=== PATIENT | female | born 1980 | race Native Hawaiian/Other Pacific Islander ===

== ENCOUNTER 2017-02-27 21:33 | Observation (INO) | payer OTHER ==
[~2017-02-27] VITALS: Ht 167.6 cm; Wt 87.5 kg
[~2017-02-27 21:33] MED LIST: ALBUTEROL0.083 % IN; ASMANEX 120220 MCG IN; CALCIUM +D PO; CETIRIZINE10 MG PO; DIAZEPAM10 MG PO; DIPH25CA90 PO; EPIPEN 2-PAK0.3 MG IJ; EQ OMEPRAZOLE20 MG PO; FLUNISOLIDE XX; FLUOXETINE20 MG PO; GABA300C2 PO; HYDR5TAB9 PO; LIDO/PRILOCN1 CRE EX; OXYCODONE HCL15 MG PO; PROMETHAZINE25 MG PO; ROBAXIN-750750 MG PO
[2017-02-27 21:36] VITALS: BP 133/75; TEMP 98.5
[2017-02-27 22:34] LABS: PLATELET COUNT 205 K/uL (152-353)
[2017-02-28 04:00] VITALS: BP 105/61; TEMP 97.5
[2017-02-28 06:53] VITALS: BP 106/71; TEMP 97.5; Ht 167.6 cm; Wt 87.5 kg
[2017-02-28 08:00] VITALS: BP 105/59; TEMP 97.6
[2017-02-28 12:00] VITALS: BP 104/59; TEMP 97.8
== END 2017-02-28 15:06 | disposition home or self-care (01) ==
LOC: ED 21:33 → MED/SURG 23:28
DX: T78.3XXA Angioneurotic edema, initial encounter (principal); J38.4 Edema of larynx
CPT/HCPCS: 36415; 84630; 85027; 94760; 96361; 96365; 96366; 96374; 96375; 99220; 99284; G0378; J1200; J2920; J2930

== ENCOUNTER 2018-01-22 12:09 | Outpatient (CLI) | payer OTHER | END 2018-01-22 21:33 | disposition home or self-care (01) | LOC: RAD 12:09 | DX: S93.691A Other sprain of right foot, initial encounter (principal) ==

== ENCOUNTER 2018-12-26 20:13 | Emergency (ER) | payer OTHER ==
[~2018-12-26] VITALS: Ht 165.1 cm; Wt 95.3 kg
[2018-12-26 22:07] VITALS: BP 118/72; TEMP 98.3
== END 2018-12-26 22:12 | disposition home or self-care (01) ==
LOC: ED 20:13
DX: L03.211 Cellulitis of face (principal)
CPT/HCPCS: 99282; J1885

== ENCOUNTER 2019-02-20 06:57 | Emergency (ER) | payer OTHER ==
[~2019-02-20] VITALS: Ht 165.1 cm; Wt 99.8 kg
[2019-02-20 07:02] VITALS: BP 110/67; TEMP 98.8
[2019-02-20 08:12] LABS: PLATELET COUNT 240 K/uL (152-353)
[2019-02-20 08:29] LABS: POTASSIUM 4.6 mmol/L (3.6-5.2)
== END 2019-02-20 10:45 | disposition home or self-care (01) ==
LOC: ED 06:57
PROVIDERS: Internal Medicine
DX: L03.211 Cellulitis of face (principal)
CPT/HCPCS: 36415; 80053; 85027; 96374; 99284; J1200; Q9963

== ENCOUNTER 2019-06-14 09:29 | Outpatient (CLI) | payer OTHER | END 2019-06-14 21:41 | disposition home or self-care (01) | LOC: MAMMO 09:29 | DX: Z12.31 Encounter for screening mammogram for malignant neoplasm of breast (principal) ==

== ENCOUNTER 2022-02-11 19:55 | Emergency (ER) | payer OTHER ==
[~2022-02-11] VITALS: Ht 165.1 cm; Wt 99.8 kg
[2022-02-11 22:51] VITALS: BP 113/68; TEMP 98.7
== END 2022-02-11 22:51 | disposition home or self-care (01) ==
LOC: ED 19:55
PROC: 2W3LX1Z Immobilization of Right Lower Extremity using Splint (ICD-10-PCS; principal; 2022-02-11)
DX: M25.561 Pain in right knee (principal); M25.551 Pain in right hip; V00.131A Fall from skateboard, initial encounter; Y92.098 Other place in other non-institutional residence as the place of occurrence of the external cause
CPT/HCPCS: 36415; 96375; 96376; 99284; J1885; J2270; J2405